=== PATIENT | female | born 1995 | race Caucasian/White ===

== ENCOUNTER 2019-07-19 23:43 | Emergency (ER) | payer OTHER ==
[~2019-07-19] VITALS: Ht 154.9 cm; Wt 63.5 kg
[~2019-07-19 23:43] MED LIST: IBUP800 PO; OXYACE5T PO; Verotin-Gr Cap1 EACH PO
[2019-07-20] MEDS ORDERED: Percocet 5-3251 EACH PO (00:33)
[2019-07-20] MEDS ORDERED: MOTRIN IB200 MG PO (00:33)
[2019-07-20] MEDS ORDERED: Amoxicillin500 MG PO (00:33)
== END 2019-07-20 00:48 | disposition home or self-care (01) ==
LOC: ER 23:43
DX: K08.89 Other specified disorders of teeth and supporting structures (principal)
CPT/HCPCS: 99282; A9270